=== PATIENT | male | born 1995 | race Caucasian/White ===

== ENCOUNTER 2023-09-30 13:43 | Emergency (ER) | payer OTHER, MEDICAID, SELFPAY ==
[2023-09-30 13:58] VITALS: BP 133/79; PULSE 113; RESP 18; TEMP 37.7; O2SAT 97; BMI 21.3
--- NOTE | 2023-09-30 14:16 | CRLHL7_ITS ---
For Patients: As a result of the Century Cures Act, medical imaging exams and procedure reports are released immediately into your electronic medical record. You may view this report before your referring provider. If you have questions, please contact your health care provider. INDICATION: Left flank pain. TECHNIQUE: Multiplanar CT examination of the abdomen and pelvis were acquired without the use of intravenous contrast. COMPARISON: CT abdomen pelvis 12/20/2012. FINDINGS: Limited evaluation of the soft tissue organs without the use of intravenous contrast. Lower chest: Unremarkable. Liver: Normal. Gallbladder/Biliary: Normal. No biliary ductal dilitation. Pancreas: Normal. Spleen: Normal. Adrenal Glands: Normal. Kidneys: Normal size. No obstructive calculi or hydronephrosis. Ureters: Unremarkable. Bladder: Unremarkable. Bowel: No obstruction or bowel wall thickening. The appendix is normal. No significant colonic diverticulosis. Severe colonic stool burden. Pelvic organs: Unremarkable. Peritoneum: No free fluid or pneumoperitoneum. Vessels: Normal. The patency of the vasculature is not assessed without the use of intravenous contrast. No significant atherosclerotic disease. Lymph Nodes: No lymphadenopathy. Abdominal Wall/Soft Tissues: Unremarkable. Bones: Unremarkable. IMPRESSION: Limited evaluation of the soft tissue organs without the use of intravenous contrast. 1. No obstructive calculus or obstructive uropathy. 2. The etiology of the patient`s left flank pain is not elucidated on this examination. Please note that all CT scans at this facility use dose modulation, iterative reconstruction, and/or weight-based dosing when appropriate to reduce radiation dose to as low as reasonably achievable. Dictated by Yogesh Walls MD @ 09/30/2023 3:28:27 PM (Electronically Signed)
--- NOTE | 2023-09-30 14:18 | ED.GENADULT ---
HPI - General Adult General Chief complaint: Flank Pain Stated complaint: Kidney pain, body aches Time Seen by Provider: 09/30/23 13:56 History of Present Illness HPI narrative: This 28-year-old male comes in reporting left flank pain for the past week or so. The pain does extend around into his left lower abdomen. He does report a family history of kidney stones but has not had any such episode himself. He does not report any fevers. He has not had any nausea or vomiting. He states that the pain is rather constant and he prefers to remain still. Related Data Previous Rx's Medication Instructions Recorded cyclobenzaprine 10 mg tablet 10 mg PO TID #15 tabs 09/30/23 ketorolac 10 mg tablet 10 mg PO Q8H 5 days #15 tabs 09/30/23 methylprednisolone 4 mg tablets in See Rx Instructions PO .COMPLEX 09/30/23 a dose pack (Medrol (Gio)) #21 ea Allergies Allergy/AdvReac Type Severity Reaction Status Date / Time No Known Drug Allergies Allergy Verified 09/30/23 13:56 Review of Systems Status of ROS: Reports: 10 or more systems reviewed and unremarkable except as noted in History and below Narrative: Constitutional: No fevers, no weight gain or loss. Eyes: No discharge. No vision changes. HENT: No congestion, no sore throat, no ear pain. Cardiovascular: No chest pain, no palpitations. Respiratory: No shortness of breath, no wheezes, no cough. Gastrointestinal: No vomiting, no diarrhea. Left flank pain and left abdomen pain. Genitourinary: No dysuria, no hematuria. Musculoskeletal: Normal range of motion. Skin: No rashes, no pruritis. Neurological: No dizziness, weakness, sensory change, speech change. Endo/Heme/Allergies: No bruising or bleeding. No polydipsia. Pysch: no suicidality, no anxiety, no insomnia. All other systems reviewed and are negative. PFSH PFSH Social History Smoking Status: Current every day smoker Exam Narrative: Exam Narrative: Constitutional: Well-developed, well-nourished, no acute distress. HEENT: Normocephalic, atraumatic. Neck: Normal range of motion. Nontender. Supple. Heart: Regular. No murmurs. Normal rate. Intact distal pulses. Lungs: Clear to auscultation. No chest discomfort. No wheezes, rhonchi, or rales. Abdomen: Decreased bowel sounds. Diffuse pain in the left abdomen. No rebound tenderness. Genitalia: Deferred. Back: No midline tenderness. Normal range of motion. Extremities: Normal range of motion. No injury. Skin: Intact. No rash. Warm. No erythema or pallor. Neurologic: No altered sensation. No weakness. Alert and oriented. Psychiatric: No suicidality. No anxiety or depression. No insomnia. Nursing notes and vitals signs are reviewed. Const: Vital Signs, click to edit/add: Vital Signs - 24 hr 09/30/23 13:58 Temperature 100 F H Pulse Rate [Pulse Oximeter] 113 H Respiratory Rate 18 Blood Pressure [Ri ght Upper Arm] 133/79 Pulse Oximetry 97 Oxygen Delivery Me thod Room Air Course Vital Signs Vital signs: Initial Vital Signs Temperature 100 F H 09/30/23 13:58 Temperature Source Temporal Artery Scan 09/30/23 13:58 Pulse Rate 113 H 09/30/23 13:58 Pulse Rhythm Regular 09/30/23 13:58 Pulse Strength 3+ Normal 09/30/23 13:58 Respiratory Rate 18 09/30/23 13:58 Blood Pressure 133/79 09/30/23 13:58 Blood Pressure Mean 97 09/30/23 13:58 Blood Pressure Position Sitting 09/30/23 13:58 Pulse Oximetry 97 09/30/23 13:58 Oxygen Delivery Method Room Air 09/30/23 13:58 Vital Signs Temperature 100 F H 09/30/23 13:58 Pulse Rate 113 H 09/30/23 13:58 Respiratory Rate 18 09/30/23 13:58 Blood Pressure 133/79 09/30/23 13:58 Pulse Oximetry 97 09/30/23 13:58 Oxygen Delivery Method Room Air 09/30/23 13:58 Temperature 100 F H 09/30/23 13:58 Pulse Rate 113 H 09/30/23 13:58 Respiratory Rate 18 09/30/23 13:58 Blood Pressure 133/79 09/30/23 13:58 Pulse Oximetry 97 09/30/23 13:58 Oxygen Delivery Method Room Air 09/30/23 13:58 Medications Administered Medications: Generic Name Dose Route Start Last Admin Trade Name Freq PRN Reason Stop Dose Admin Sodium Chloride 1,000 mls @ 1,000 mls/hr 09/30/23 15:15 09/30/23 14:44 0.9 % Sodium Chloride 1000 Ml IV 09/30/23 16:14 1,000 mls/hr .Q1H ROCÍO Administration Discontinued Medications Generic Name Dose Route Start Last Admin Trade Name Michaelle PRN Reason Stop Dose Admin Ketorolac Tromethamine 30 mg 09/30/23 14:16 09/30/23 14:44 Ketorolac 30 Mg/Ml Inj IVP 09/30/23 14:17 30 mg ONCE ONE Administration Medical Decision Making MDM Narrative Medical decision making narrative: This patient comes in with pain in his left flank and low back region and this extends into his left abdomen. This is been present over the past week or so. A CT scan of the abdomen and pelvis without contrast is obtained and shows no acute findings to explain patient's symptoms. Lab results also are are reassuring. Urinalysis is negative for infection and hematuria. It seems that this patient's symptoms are more likely musculoskeletal or perhaps some nerve impingement in his low back. He is okay to be discharged home and did received prescriptions for Toradol, Flexeril, and Medrol Dosepak. He did receive an IV dose of Toradol here which brought some relief to his symptoms. Lab Data Labs: Lab Results 09/30/23 09/30/23 Range/Units 14:35 15:40 WBC 8.05 (4.50-11.00) K/uL RBC 5.00 (4.30-5.90) m/uL Hgb 15.4 (13.5-17.5) gm/dL Hct 46.4 (37.0-53.0) % MCV 93 (80-100) fL MCH 31 (26-34) pg MCHC 33 (32-36) gm/dL RDW Coeff of Gómez 13.0 (11.5-15.5) % Plt Count 316 (140-440) K/uL Neut % (Auto) 84.4 H (42.0-72.0) % Lymph % (Auto) 7.7 L (20-44) % [place] % (Auto) 7.0 (0.0-11.0) % Eos % (Auto) 0.5 (0.0-7.0) % Baso % (Auto) 0.2 (0.0-3.0) % Neut # (Auto) 6.80 (1.7-7.0) K/uL Lymph # (Auto) 0.60 L (0.90-2.90) K/uL [place] # (Auto) 0.60 (0.00-0.90) K/UL Eos # (Auto) 0.04 (0.00-0.50) K/uL Baso # (Auto) 0.02 (0.00-0.30) K/uL Abs Immat Gran (auto) 0.02 (0.00-0.30) K/uL Imm/Tot Granulo (auto) 0.2 % Sodium 137 (135-149) mmol/L Potassium 3.8 (3.6-5.1) mmol/L Chloride 96 (96-114) mmol/L Carbon Dioxide 31 (20-32) mmol/L Anion Gap 10 (7-15) mEq/L BUN 9 (5-24) mg/dL Creatinine 0.8 (0.5-1.5) mg/dL Estimated Creat Clear 123.48 Estimated GFR 124 ml/min Glucose 115 (60-115) mg/dL Calcium 9.5 (8.4-10.6) mg/dL Urine Color Yellow (Yellow) Urine Appearance Cloudy A (Clear) Urine pH 7.0 (5.0-8.5) Ur Specific [place] 1.020 (1.000-1.030) Urine Protein Negative (Negative) Urine Glucose (UA) Negative (Negative) Urine Ketones Negative (Negative) Urine Blood Negative (Negative) Urine Nitrite Negative (Negative) Urine Bilirubin Negative (Negative) Urine Urobilinogen 0.2 (0.2-1.0) Ur Leukocyte Esterase Negative (Negative) Urine RBC 0-2 (0-2) Urine WBC 0-2 (0-5) Ur Squamous Epith Cells Few (None-Few) Amorphous Sediment Many A (None) Urine Bacteria None (None) Imaging Data CT scan - abdomen: Radiologist's impression: 1. No obstructive calculus or obstructive uropathy. 2. The etiology of the patient`s left flank pain is not elucidated on this examination. Discharge Plan Discharge Clinical Impression: Low back pain, Abdominal pain Patient Disposition: Home, Self-Care Condition: Stable Additional Instructions: Take medication as needed and indicated. Follow up with MD return if worsening. Prescriptions: New cyclobenzaprine 10 mg tablet 10 mg PO TID Qty: 15 0RF ketorolac 10 mg tablet 10 mg PO Q8H 5 Days Qty: 15 0RF methylprednisolone [Medrol (Gio)] 4 mg tablets,dose pack See Rx Instructions .ROUTE .COMPLEX Qty: 21 0RF Rx Instructions: orally per package directions Follow Up/Referrals: Faye Yun MD [Primary Care Provider] - Stand Alone Forms: [employer] Info Instructions
[2023-09-30] MEDS: 0.9 % SODIUM CHLORIDE 1000 ml 1,000 ML IV (14:44)
[2023-09-30] MEDS: KETOROLAC 30 MG/ML inj IVP (14:44)
[2023-09-30 14:52] LABS: Basophils Absolute Auto 0.02 K/uL (0.00-0.30); Basophils Percent Auto 0.2 % (0.0-3.0); Eosinophils Absolute Auto 0.04 K/uL (0.00-0.50); Eosinophils Percent Auto 0.5 % (0.0-7.0); Hematocrit 46.4 % (37.0-53.0); Hemoglobin* 15.4 gm/dL (13.5-17.5); Immature Granulocytes Abs Auto 0.02 K/uL (0.00-0.30); Immature Granulocytes Pct Auto 0.2 %; Lymphocytes Percent Auto 7.7 % (20-44); Mean Corpuscular HGB Conc 33 gm/dL (32-36); Mean Corpuscular Hemoglobin 31 pg (26-34); Mean Corpuscular Volume 93 fL (80-100); Neutrophils Percent Auto 84.4 % (42.0-72.0); Platelet Count* 316 K/uL (140-440); White Blood Count* 8.05 K/uL (4.50-11.00)
[2023-09-30 14:56] LABS: Slide Review Reflex No
[2023-09-30 14:58] LABS: Chloride* 96 mmol/L (96-114); Potassium* 3.8 mmol/L (3.6-5.1); Sodium* 137 mmol/L (135-149)
[2023-09-30 15:01] LABS: Anion Gap 10 mEq/L (7-15); Blood Urea Nitrogen* 9 mg/dL (5-24); Carbon Dioxide* 31 mmol/L (20-32); Creatinine* 0.8 mg/dL (0.5-1.5); Est. Creatinine Clearance* 123.48; Estimated Glomerular Filt Rate 124 ml/min; Glucose* 115 mg/dL (60-115)
[2023-09-30 15:02] LABS: Calcium* 9.5 mg/dL (8.4-10.6)
[2023-09-30 15:46] LABS: Appearance Urine Cloudy (Clear); Bilirubin Urine Negative (Negative); Blood Urine Negative (Negative); Color Urine Yellow (Yellow); Glucose Urine Negative (Negative); Ketones Urine Negative (Negative); Leukocyte Esterase Urine Negative (Negative); Nitrite Urine Negative (Negative); Protein Urine Negative (Negative); Urobilinogen Urine 0.2 (0.2-1.0)
[2023-09-30 15:53] LABS: Amorphous Sediment Urine Many; RBC Urine 0-2 (0-2); Squamous Epithelial Cell Urine Few (None-Few); WBC Urine 0-2 (0-5)
[2023-09-30 16:11] VITALS: BP 133/79; PULSE 101; RESP 18; TEMP 37.6
== END 2023-09-30 16:11 | disposition home or self-care (01) ==
PROVIDERS: Emergency Provider Emergency Medicine Emergency Medical Services; PCP Family Medicine
DX: R10.32 Left lower quadrant pain (principal); M54.9 Dorsalgia, unspecified
CPT/HCPCS: 36415; 74176; 80048; 81001; 85025; 99284; J1885; J7030

== ENCOUNTER 2024-02-07 22:28 | Emergency (ER) | payer MEDICAID, SELFPAY ==
[2024-02-07 22:46] VITALS: BP 126/84; PULSE 92; RESP 20; TEMP 36.8; O2SAT 100; BMI 25.1
[2024-02-07] MEDS: TETANUS/DIPHTH/PERTUSSIS 0.5 ML SYRINGE IM (22:48)
[2024-02-07] MEDS: OXYCODONE 5 MG TABLET 10 MG PO (22:55)
[2024-02-07] MEDS: ONDANSETRON ODT 4 MG TAB PO (22:55)
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
== END 2024-02-08 00:35 | disposition home or self-care (01) ==
PROVIDERS: Emergency Provider Emergency Medicine
DX: T23.302A Burn of third degree of left hand, unspecified site, initial encounter (principal); W40.1XXA Explosion of explosive gases, initial encounter
CPT/HCPCS: 90471; 90715; 99283; A9270